=== PATIENT | female | born 1940 | race Caucasian/White ===

== ENCOUNTER 2018-02-05 21:44 | Inpatient (IN) ==
[2018-02-05] MEDS ORDERED: Mag Hydrox/Al Hydrox/Simeth 30 ML UDC PO STA (22:33)
[2018-02-05] MEDS ORDERED: Nitroglycerin 0.4 MG TAB.SUBL SL PRN ×2 (22:33→23:27)
[2018-02-05] MEDS ORDERED: Aspirin 81 MG TAB.CHEW PO STA (22:33)
--- NOTE | 2018-02-05 22:36 | Emergency Department Note ---
Disposition Clinical Impression: Chest pain Qualifiers: Chest pain type: unspecified Qualified Code(s): R07.9 - Chest pain, unspecified Disposition: Admitted As Inpatient Condition: Good Referrals: Jayla Goodman CNP [Primary Care Provider] - Forms: ED Satisfaction Letter Chest Pain HPI - General Chief Complaint: ED Chest Pain Stated Complaint: cp Source: patient - History of Present Illness HPI Narrative: Patient with a few days of chest pain has been constant with waxing and waning intensity. She describes it as a fullness in the middle of her chest. Associated with diaphoresis or shortness of breath, no nausea. Worse with exertion. She says she has similar episode when she was about 58 years old, has several tests run, was told she had acid reflux. Was on Prilosec for a period of time, but then did not need it anymore. Sometimes she is has discomfort she checked her pulse and found it to be in the 40s. She said no syncope. Has had no recent changes in her medications. Blood pressure is been running high as well, anywhere from the 140s to 180s systolic. Denies any symptoms of bleeding, no fever or cough. No other complaints. Severity scale (1-10): 3 - Related Data Allergies Allergy/AdvReac Type Severity Reaction Status Date / Time codeine Allergy See Verified 02/05/18 21:51 Comments All systems ED: reviewed and negative except as stated. Chest Pain PMH - Past Medical History Medical history: Reports: hypertension Psychiatric history: Reports: anxiety, depression - Social History Smoking Status: Never smoker Alcohol use: Reports: none Drug use: Reports: none Physical Exam Vital signs noted please see nurse's notes. Gen.: Well-developed, well-nourished patient lying in bed who appears nontoxic. Head: Atraumatic, normocephalic. Eyes: Sclerae anicteric. ENT: Mucous membranes moist. Neck: No JVD. Heart: Regular rate and rhythm with occasional ectopic beats and soft systolic murmur. Lungs: Normal respiratory pattern without respiratory distress, lungs clear to auscultation bilaterally. Abdomen: Soft, nontender, nondistended, no guarding or peritoneal signs. Skin: Warm and dry without rash. Neurologic: Awake, alert with normal speech and mental status. Cranial nerves grossly intact. No focal deficits or lateralizing signs. Psychiatric: Normal mood and affect. Muscular skeletal: No peripheral edema. No signs of trauma or DVT. - General General appearance: alert, in no apparent distress Course Vital Signs Temperature 98.1 F 02/05/18 21:52 Pulse Rate 56 02/05/18 21:52 Respiratory Rate 16 02/05/18 21:52 Blood Pressure 224/102 02/05/18 21:52 O2 Sat by Pulse Oximetry 96 02/05/18 21:52 Temperature 98.1 F 02/05/18 21:52 Pulse Rate 56 02/05/18 21:52 Respiratory Rate 16 02/05/18 21:52 Blood Pressure 224/102 02/05/18 21:52 O2 Sat by Pulse Oximetry 96 02/05/18 21:52 Oxygen Delivery Oxygen Delivery Room Air Chest Pain - MDM Narrative Medical decision making narrative: Repeat EKG showed sinus rhythm rate 54, normal QT and QRS, 1st degree AV block with [place] of 221. No acute ischemic changes. On my reevaluation at 1111, her pain is significantly improved. Heart score is 4. Troponin negative. I do not have confidence the patient would follow-up as an outpatient. I think she is best served by admission and completion of rule out on an inpatient basis. - Lab Data Result diagrams: 02/05/18 22:25 02/05/18 22:25 Lab Results 02/05/18 02/05/18 Range/Units 22:25 22:25 WBC 10.6 (4.3-11.1) K/mcL RBC 5.53 H (3.82-4.97) M/mcL Hgb 15.7 H (11.5-15.4) g/dL Hct 47.4 H (35.3-44.9) % MCV 85.7 (83.0-100.0) fL MCH 28.4 (28.0-33.3) pg MCHC 33.1 (31.6-35.5) g/dL RDW 13.6 (11.5-14.5) % Plt Count 183 (140-400) K/mcL MPV 10.8 (9.4-12.4) fL Sodium 139 (136-145) mEq/L Potassium 4.1 (3.5-5.1) mEq/L Chloride 105 (98-107) mEq/L Carbon Dioxide 26 (23-29) mEq/L BUN 20 (8-23) mg/dL Creatinine 0.87 (0.60-1.20) mg/dL Est GFR ( Amer) > 60 (> 60) Est GFR (Non-Af Amer) > 60 (> 60) BUN/Creatinine Ratio 23 (6-26) Glucose 118 H (70-105) mg/dL Calculated Osmolality 292 (280-300) Calcium 9.3 (8.6-10.3) mg/dL Troponin I < 0.03 (< 0.04) ng/mL - EKG Data EKG attestation: Yes I reviewed and interpreted this EKG. EKG shows normal: sinus rhythm (Rate 83, normal intervals and QRS duration. There are frequent PVCs. No ST segment or T-wave changes to suggest an acute ischemic process.) Heart Score - Score History: Moderately Suspicious EKG: Normal Age: Greater than 65 Risk Factors: 1-2 risk factors Troponin: Less than normal limit HEART Score Total: 4
[2018-02-05 22:47] LABS: Hematocrit 47.4 % (35.3-44.9); Hemoglobin 15.7 g/dL (11.5-15.4); Mean Corpuscular HGB Conc 33.1 g/dL (31.6-35.5); Mean Corpuscular Hemoglobin 28.4 pg (28.0-33.3); Mean Corpuscular Volume 85.7 fL (83.0-100.0); Mean Platelet Volume 10.8 fL (9.4-12.4); Platelet Count 183 K/mcL (140-400); Red Blood Count 5.53 M/mcL (3.82-4.97); Red Cell Distribution Width 13.6 % (11.5-14.5)
[2018-02-05 22:58] LABS: BUN/Creatinine Ratio 23 (6-26); Blood Urea Nitrogen 20 mg/dL (8-23); Calcium 9.3 mg/dL (8.6-10.3); Carbon Dioxide 26 mEq/L (23-29); Chloride 105 mEq/L (98-107); Glucose 118 mg/dL (70-105); Osmolality,Calculated 292 (280-300); Potassium 4.1 mEq/L (3.5-5.1); Sodium 139 mEq/L (136-145); Troponin I < 0.03 ng/mL (< 0.04); eGFR For Non-African Americans > 60 (> 60)
[2018-02-05] MEDS ORDERED: Naloxone 0.4 MG/ML INJ IVP PRN (23:24)
[2018-02-06] MEDS: *HR* Heparin 5,000 UNIT/ML VIAL SQ SCH ×4 (02:19→22:42)
[2018-02-06] MEDS: cloNIDine HCl 0.1 MG TABLET PO SCH ×2 (02:20→10:52)
[2018-02-06] MEDS ORDERED: Regadenoson 0.4 MG/5 ML SYRINGE IVP ONE (05:57)
[2018-02-06 06:50] LABS: Basophils % 0.3 %; Eosinophils # 0.2 K/mcL (0.0-0.6); Eosinophils % 2.6 %; Hematocrit 40.9 % (35.3-44.9); Immature Granulocytes % 0.2 % (0-4); Lymphocytes # 2.3 K/mcL (0.6-4.6); Mean Corpuscular HGB Conc 33.3 g/dL (31.6-35.5); Mean Corpuscular Volume 84.2 fL (83.0-100.0); Mean Platelet Volume 11.2 fL (9.4-12.4); Monocytes # 0.8 K/mcL (0.0-1.3); Monocytes % 8.9 %; Neutrophils # 5.5 K/mcL (1.6-8.9); Platelet Count 165 K/mcL (140-400); Red Blood Count 4.86 M/mcL (3.82-4.97); Red Cell Distribution Width 13.8 % (11.5-14.5)
[2018-02-06 06:52] LABS: Hemoglobin 13.6 g/dL (11.5-15.4)
[2018-02-06 07:15] LABS: Troponin I < 0.03 ng/mL (< 0.04)
[2018-02-06 07:20] LABS: Alanine Aminotransferase 14 Units/L (7-52); Albumin 3.8 g/dL (3.5-5.7); Albumin/Globulin Ratio 1.6 (1.1-2.2); Alkaline Phosphatase 75 Units/L (34-104); Aspartate Amino Transferase 12 Units/L (13-39); BUN/Creatinine Ratio 20 (6-26); Bilirubin,Total 0.4 mg/dL (0.3-1.0); Blood Urea Nitrogen 17 mg/dL (8-23); Carbon Dioxide 24 mEq/L (23-29); Chloride 107 mEq/L (98-107); Globulin 2.4 g/dL (2.4-3.5); Glucose 120 mg/dL (70-105); Osmolality,Calculated 293 (280-300); Potassium 3.8 mEq/L (3.5-5.1); Sodium 140 mEq/L (136-145); Total Protein 6.2 g/dL (6.4-8.9); eGFR For Non-African Americans > 60 (> 60)
--- NOTE | 2018-02-06 07:56 | Internal Med History&Physical ---
Date of Encounter: 02/06/18 Time of Encounter: 03:30 Internal Medicine - H&P: HPI Chief complaint: Chest pain History of present illness: Ms. Ann is a 77 year old female with past medical history of hypertension who reports chest pain for the past 4-5 days. She describes it as a fullness in the middle of her chest, constant, nonradiating, nonpleuritic with waxing and waning intensity associated with diaphoresis, shortness of breath, and absent nausea. Symptoms appear to be worse with exertion. She states that she checked her blood pressure around the time of symptom onset and found her systolic blood pressure to be in the 180s and a pulse of 41. Patient however states that her heart rate typically runs in the high 40s and low 50s. Denies any history of coronary artery disease. She has never smoked and does not drink. She reports a family history of [place] in her father and brother both of which suffered a heart attack in their 70s and 80s respectively. Patient currently on antihypertensive medications with metoprolol and clonidine. She reports similar a episode when she was about 58 years old and was treated for acid reflux. She said no syncope. Has had no recent changes in her medications. Blood pressure is been running high as well, anywhere from the 140s to 180s systolic. Denies any symptoms of bleeding, chest pain at this time. No fever or cough. No other complaints. EKG unremarkable. Negative troponins. Past Med Surg Social Fam HX - Past Medical History Medical history: hypertension Psychiatric history: anxiety, depression - Social History Smoking Status: Never smoker Smokeless Tobacco Status: No Alcohol use: none Drug use: none - Family History Mother Living Status: Age at : 87 Hx Family Cardiac Disorders: Yes Father Age at : 74 Hx Family Cardiac Disorders: Yes Brother Living Status: Age at : 64 Hx Family Cardiac Disorders: Yes Internal Medicine - H&P: Meds Calcium Carbonate/Vitamin D3 [Calcium 1,000 + D3 Caplet] 1 each PO DAILY [History] Fish Oil/Dha/Epa [Fish Oil 1,200 mg Fish Oil] 1 each PO BID 02/06/18 [History] Metoprolol [Lopressor] 50 mg PO BID 02/06/18 [History] cloNIDine HCl [CloNIDine HCl] 0.1 mg PO BID 02/06/18 [History] 3 Allergy/AdvReac Type Severity Reaction Status Date / Time codeine Allergy See Verified 02/05/18 21:51 Comments All Systems PM: A 10-system review of systems was performed and is negative for pertinent findings except as documented above in the HPI. - Constitutional Constitutional: no chills, no fever(s), no night sweats - EENT Eyes: no change in vision, no discharge, no pain, no photophobia Ears: no ear discharge, no ear pain, no tinnitus Nose, mouth and throat: no dysphagia, no nasal discharge, no neck pain, no sore throat - Cardiovascular Cardiovascular ROS IM: no chest pain, no diaphoresis, no dyspnea, no lightheadedness, no palpitations, no syncope - Respiratory Respiratory: no cough, no dyspnea, no wheezing, no excessive phlegm production - Gastrointestinal Gastrointestinal: no abdominal pain, no diarrhea, no hematemesis, no hematochezia, no melena, no nausea, no vomiting - Genitourinary Genitourinary: no change in urinary stream, no dysuria, no flank pain, no hematuria - Musculoskeletal Musculoskeletal ROS IM: no numbness, no tingling - Integumentary Integumentary IM: no rash, no unusual bruising - Neurological Neurological ROS: no confusion, no convulsions, no focal weakness, no numbness, no tingling, no tremor(s) - Hematologic/Lymphatic Hematologic/Lymphatic: no easy bruising - Constitutional Vitals: Temp Pulse Resp BP Pulse Ox 98.4 F 51 16 152/78 97 02/06/18 01:04 02/06/18 01:04 02/06/18 01:04 02/06/18 02:03 02/06/18 01:09 Exam: General: Alert and oriented 3; lying in bed in no acute distress Skin:Normal color, no rash, no lesions. HEENT:EOM, pupils equal, round and reactive. Cardiovascular:Normal S1 & S2, no rubs, murmurs or gallops. No JVD. Pulse regular. Lungs:Normal breath sounds, no wheezes or crackles. Abdomen:Soft, non-tender, no rigidity. Extremities:No deformity, no edema or tenderness, no joint swelling or clubbing. Neurological:Normal cognition and motor skills. Pulses:Carotid and radial pulses normal +2. Rest of the physical exam is non contributory Internal Med - H&P Results - Labs CBC & Chem 7: 02/06/18 05:15 02/06/18 05:15 Labs: Short CBC 02/06/18 Range/Units 05:15 WBC 8.9 (4.3-11.1) K/mcL Hgb 13.6 D (11.5-15.4) g/dL Hct 40.9 (35.3-44.9) % Plt Count 165 (140-400) K/mcL Neutrophils # 5.5 (1.6-8.9) K/mcL BMP 02/06/18 05:15 Sodium 140 Potassium 3.8 Chloride 107 Carbon Dioxide 24 BUN 17 Creatinine 0.83 Glucose 120 H Calcium 9.0 Cardiac Enzymes 02/06/18 Range/Units 05:15 Troponin I < 0.03 (< 0.04) ng/mL Liver Function 02/06/18 Range/Units 05:15 Total Bilirubin 0.4 (0.3-1.0) mg/dL AST 12 L (13-39) Units/L ALT 14 (7-52) Units/L Alkaline Phosphatase 75 (34-104) Units/L Albumin 3.8 (3.5-5.7) g/dL - Assessment and plan (1) Chest pain Current Visit: Yes Status: Acute Assessment and plan: Chest pain rule out acute coronary syndrome. Patient received loading dose of aspirin Trend troponin. Continue telemetry. Sublingual nitroglycerin as needed Stress test. Consider cardiology consult. Qualifiers: Chest pain type: unspecified Qualified Code(s): R07.9 - Chest pain, unspecified (2) Hypertension Current Visit: Yes Status: Acute Assessment and plan: Blood pressure mildly elevated. Continue with beta micheline and clonidine. Qualifiers: Hypertension type: unspecified Qualified Code(s): I10 - Essential (primary ) hypertension (3) History of tobacco abuse Current Visit: Yes Status: Acute (4) DVT prophylaxis Current Visit: Yes Status: Acute Assessment and plan: Continue subcutaneous heparin - Time Spent With Patient Total time spent is greater than 50% in coordination of care (as documented) at patient's floor/unit and/or counseling patient:
--- NOTE | 2018-02-06 11:50 | Internal Med Progress Note ---
Hospitalist Progress Note - Encounter Date of Encounter: 02/06/18 Time of Encounter: 11:38 - Subjective Interval History: nno acute changes overnight. Patient conchita. Reports that she has not had chest pain since last night. However, she notes that she has hypertensive this morning. She is reporting that her blood pressure is greater than her baseline blood pressure at home. - Exam Vitals: Temp Pulse Resp BP Pulse Ox 97.9 F 51 17 192/84 95 02/06/18 10:45 02/06/18 11:15 02/06/18 10:45 02/06/18 11:15 02/06/18 10:45 Exam: PHYSICAL EXAMINATION: GENERAL: The patient is a well-developed, elderly female in no apparent distress who is alert and oriented 3 HEENT: Head is normocephalic and atraumatic. Extraocular muscles are intact. Pupils are equal, round, and reactive to light and accommodation. NECK: Supple. No carotid bruits. No lymphadenopathy or thyromegaly. LUNGS: Clear to auscultation. HEART: Regular rate and rhythm, S1, S2 without murmur rubs or gallops. EXTREMITIES: Without any cyanosis, clubbing, rash, lesions or edema. SKIN: No ulceration or induration present. - Assessment and Plan (1) Chest pain Current Visit: Yes Status: Acute Assessment and Plan: Admitted for Chest pain rule out ACS Presented with a 4-5 day history of midsternal chest pressure/discomfort without radiation Patient reports that this occurred during activity but did not get better with rest. In addition to this she was experiencing dyspnea and diaphoresis which prompted her admission to the ED EKG--Sinus johnathan, no ST-T wave changes concerning for ischemia serial troponins obtained and less than 0.03 x2 Continue telemetry Sublingual nitroglycerin as needed Stress test unable to be completed today d/t HTN; anti-HTN meds held this am. Resume anti-HTN meds now and hold BB only in the am. Stress tomorrow TTE pending completion Consider cardiology consult pending stress test results (2) Hypertension Current Visit: Yes Status: Acute Assessment and Plan: per hx HTN this am with SBP 208/94; likely rebound with holding clonidine and BB anti-HTN meds held this am Start DAYANARA-I and CCB D/C BB and clonidine d/t bradycardia HR in the 40's Start PRN hydralazine (3) History of tobacco abuse Current Visit: Yes Status: Acute Assessment and Plan: discussed tobacco cessation (4) DVT prophylaxis Current Visit: Yes Status: Acute Assessment and Plan: Continue SC heparin - Time Spent with Patient Total time spent is greater than 50% in coordination of care (as documented) at patient's floor/unit and/or counseling patient: less than 15 minutes Plan of Care Discussed with: patient Internal Medicine: Result - Labs CBC & Chem 7: 02/06/18 05:15 02/06/18 05:15 Labs: Short CBC 02/06/18 Range/Units 05:15 WBC 8.9 (4.3-11.1) K/mcL Hgb 13.6 D (11.5-15.4) g/dL Hct 40.9 (35.3-44.9) % Plt Count 165 (140-400) K/mcL Neutrophils # 5.5 (1.6-8.9) K/mcL BMP 02/06/18 05:15 Sodium 140 Potassium 3.8 Chloride 107 Carbon Dioxide 24 BUN 17 Creatinine 0.83 Glucose 120 H Calcium 9.0 Cardiac Enzymes 02/06/18 Range/Units 05:15 Troponin I < 0.03 (< 0.04) ng/mL Liver Function 02/06/18 Range/Units 05:15 Total Bilirubin 0.4 (0.3-1.0) mg/dL AST 12 L (13-39) Units/L ALT 14 (7-52) Units/L Alkaline Phosphatase 75 (34-104) Units/L Albumin 3.8 (3.5-5.7) g/dL Consult Discharge Plan - Plan Referrals: Jayla Goodman, [facility] [Primary Care Provider] - (1) Chest pain Qualifiers: Chest pain type: unspecified Qualified Code(s): R07.9 - Chest pain, unspecified (2) Hypertension Qualifiers: Hypertension type: unspecified Qualified Code(s): I10 - Essential (primary) hypertension
--- NOTE | 2018-02-06 12:58 | Electrocardiograph Report ---
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
--- NOTE | 2018-02-06 13:00 | Electrocardiograph Report ---
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
[2018-02-07] MEDS: Ondansetron 4 MG/2 ML VIAL IVP PRN ×2 (02:06→18:37)
[2018-02-07] MEDS ORDERED: Regadenoson 0.4 MG/5 ML SYRINGE IVP ONE (05:52)
[2018-02-07] MEDS: *HR* Heparin 5,000 UNIT/ML VIAL SQ SCH ×3 (06:13→21:41)
[2018-02-07] MEDS ORDERED: amLODIPine 5 MG TABLET PO SCH (09:00)
[2018-02-07] MEDS ORDERED: amLODIPine 5 MG TABLET PO ONE (09:39)
--- NOTE | 2018-02-07 12:40 | Internal Med Progress Note ---
Hospitalist Progress Note - Encounter Date of Encounter: 02/07/18 Time of Encounter: 12:31 - Subjective Interval History: No acute changes overnight, patient was seen and examined at bedside today. Continues to deny any return of chest pain since admission. Still having episodes of hypertension this morning. - Exam Vitals: Temp Pulse Resp BP Pulse Ox 98.1 F 65 17 167/95 95 02/07/18 11:18 02/07/18 11:18 02/07/18 11:18 02/07/18 11:18 02/07/18 11:18 Exam: PHYSICAL EXAMINATION: GENERAL: The patient is a well-developed, elderly female in no apparent distress who is alert and oriented 3 HEENT: Head is normocephalic and atraumatic. Extraocular muscles are intact. Pupils are equal, round, and reactive to light and accommodation. NECK: Supple. No carotid bruits LUNGS: Clear to auscultation. HEART: Regular rate and rhythm, S1, S2 without murmur rubs or gallops. EXTREMITIES: Without any cyanosis, clubbing, rash, lesions or edema. SKIN: No ulceration or induration present. - Assessment and Plan (1) Chest pain Current Visit: Yes Status: Acute (2) Hypertension Current Visit: Yes Status: Acute (3) History of tobacco abuse Current Visit: Yes Status: Acute (4) DVT prophylaxis Current Visit: Yes Status: Acute - Summary of Assessment and Plan Summary of Assessment and Plan: Patient presented to the ED with chest pain and hypertensive urgency. ACS rule out implemented. Patient was reporting a 4-5 day history of midsternal chest pressure/discomfort without radiation. She reports that the pain did occur during activity but did not get better with rest. In addition to that she was experiencing dyspnea and diaphoresis which prompted her to seek care in the ED. Initial EKG on arrival shows a sinus bradycardia without any ST-T wave changes concerning for ischemia. Serial troponins obtained and found to be less than 0.032. The patient has remained on telemetry throughout stay and has had no events on telemetry. Chest pain subsided in the ED and she has had no return of chest pain since admission. She is to undergo a stress test and TTE 02/07--clinically patient is stable, she continues to deny any chest pain. Given presentation we will pursue with ACS rule out. No arrhythmic events identified on telemetry overnight. TTE completed yesterday, LVEF 60-65%, normal LV chamber size and thickness and function, mild LV DDD, normal RV structure and function, mildly dilated left atrium, normal RA size, no aortic regurgitation or stenosis, trace mitral regurgitation without stenosis, no evidence of pulmonary HTN. Patient to undergo stress test stress test this morning however, was unable to undergo stress test due to HTN. Patient likely experiencing rebound hypertension with discontinuation of clonidine. She has been started on DAYANARA inhibitor, calcium channel micheline and low-dose beta micheline 12.5 mg twice a day. Nothing by mouth After midnight for stress test in the morning. DIAGNOSIS: 1-chest pain-proceed with ACS rule out. To undergo stress test in the morning. 2-yshzufnyagqy-Knhywiscihnx per history. Continuing to have episodes of rebound hypertension. Clonidine has been discontinued. Resume beta micheline at decreased dose as patient was having bradycardia with HR in the 40s. Start metoprolol 12.5 mg twice a day now, continue Norvasc 10 mg daily, continue lisinopril 10 mg daily 3-history of tobacco abuse-discussed tobacco cessation, patient verbalizes understanding and reports that she does wish to quit smoking 4-DVT prophylaxis-SC heparin - Time Spent with Patient Total time spent is greater than 50% in coordination of care (as documented) at patient's floor/unit and/or counseling patient: less than 15 minutes Plan of Care Discussed with: patient Internal Medicine: Result - Labs CBC & Chem 7: 02/06/18 05:15 02/06/18 05:15 Labs: Cardiac Enzymes 02/06/18 Range/Units 11:29 Troponin I < 0.03 (< 0.04) ng/mL - Impressions Impressions Echocardiogram 02/06/18 10:39 Impressions: LVEF 60-65%. Normal LV chamber size, wall thickness and function. Mild left ventricular diastolic dysfunction. Normal right ventricular structure and function. No evidence of pulmonary hypertension. No significant valvular dysfunction. Left Ventricular Wall Motion: Rest Echo Findings All wall segments showed normal motion. Findings: Study Quality * Technically adequate exam. ECG Findings * Sinus bradycardia. Left Ventricle * LVEF 60-65%. * Normal LV chamber size, wall thickness and function. * Mild left ventricular diastolic dysfunction. Right Ventricle * Normal right ventricular structure and function. Left Atrium * Mildly dilated left atrium. Right Atrium * Normal right atrial size. Aortic Valve * Trileaflet aortic valve with normal function. * No aortic regurgitation. * No aortic stenosis. Mitral Valve * Mild mitral annular calcification * Trace mitral regurgitation. * No mitral stenosis. Tricuspid Valve * Normal tricuspid valve structure and function. * Trace tricuspid regurgitation. * No evidence of pulmonary hypertension. Pulmonic Valve * Normal pulmonic valve structure and function. * No pulmonic regurgitation. Aorta * Normally sized aortic root. Pericardium * The pericardium appears normal. IVC * Normal IVC dimensions and inspiratory collapse. Pulmonary Artery * Normal visualized portions of the main pulmonary artery. Consult Discharge Plan - Plan Referrals: Jayla Goodman CNP [Primary Care Provider] - 02/14/18 1:00 pm (1) Chest pain Qualifiers: Chest pain type: unspecified Qualified Code(s): R07.9 - Chest pain, unspecified (2) Hypertension Qualifiers: Hypertension type: unspecified Qualified Code(s): I10 - Essential (primary) hypertension
[2018-02-07] MEDS ORDERED: *HR* Metoprolol 5 MG/5 ML VIAL IVP ONE (18:26)
[2018-02-08] MEDS: amLODIPine 5 MG TABLET PO SCH (06:07)
[2018-02-08] MEDS: *HR* Heparin 5,000 UNIT/ML VIAL SQ SCH ×3 (06:07→20:43)
[2018-02-08] MEDS ORDERED: Regadenoson 0.4 MG/5 ML SYRINGE IVP ONE (08:41)
--- NOTE | 2018-02-08 15:43 | Internal Med Progress Note ---
Hospitalist Progress Note - Encounter Date of Encounter: 02/08/18 Time of Encounter: 15:39 - Subjective Interval History: No acute changes overnight, patient was seen and examined at bedside today. Continues to deny any return of chest pain since admission. HTN improving today , however, experiencing tachycardia - Exam Vitals: Temp Pulse Resp BP Pulse Ox 98.3 F 116 19 151/96 94 02/08/18 15:24 02/08/18 15:24 02/08/18 15:24 02/08/18 15:24 02/08/18 15:24 Exam: PHYSICAL EXAMINATION: GENERAL: The patient is a well-developed, elderly female in no apparent distress who is alert and oriented 3 HEENT: Head is normocephalic and atraumatic. Extraocular muscles are intact. Pupils are equal, round, and reactive to light and accommodation. NECK: Supple. No carotid bruits to auscultation LUNGS: Clear to auscultation. HEART: Regular rate and rhythm, S1, S2 without murmur rubs or gallops. EXTREMITIES: Without any cyanosis, clubbing, rash, lesions or edema. SKIN: No ulceration or induration present. - Assessment and Plan (1) Chest pain Current Visit: Yes Status: Acute (2) Hypertension Current Visit: Yes Status: Acute (3) History of tobacco abuse Current Visit: Yes Status: Acute (4) DVT prophylaxis Current Visit: Yes Status: Acute - Summary of Assessment and Plan Summary of Assessment and Plan: Patient presented to the ED with chest pain and hypertensive urgency. ACS rule out implemented. Patient was reporting a 4-5 day history of midsternal chest pressure/discomfort without radiation. She reports that the pain did occur during activity but did not get better with rest. In addition to that she was experiencing dyspnea and diaphoresis which prompted her to seek care in the ED. Initial EKG on arrival shows a sinus bradycardia without any ST-T wave changes concerning for ischemia. Serial troponins obtained and found to be less than 0.032. The patient has remained on telemetry throughout stay and has had no events on telemetry. Chest pain subsided in the ED and she has had no return of chest pain since admission. She is to undergo a stress test and TTE 02/08--clinically patient remains stable, she continues to deny any chest pain. ACS ruled out; stress today without ischemia or perfusion defect. No arrhythmic events identified on telemetry overnight. TTE completed yesterday, LVEF 60-65% , normal LV chamber size and thickness and function, mild LV DDD, normal RV structure and function, mildly dilated left atrium, normal RA size, no aortic regurgitation or stenosis, trace mitral regurgitation without stenosis, no evidence of pulmonary HTN. HTN improving with the addition of DAYANARA inhibitor and calcium channel micheline. However patient still having some mild hypertension with SBP in the 150s. Also, she is not having some mild tachycardia. I will increase her beta micheline dose tonight and continue to monitor overnight. If patient's blood pressure and heart rate improves and remains stable consider discharge. DIAGNOSIS: 1-chest pain-- ruled out 7-[id number] per history. 3-history of tobacco abuse-discussed tobacco cessation, patient verbalizes understanding and reports that she does wish to quit smoking 4-DVT prophylaxis-SC heparin - Time Spent with Patient Total time spent is greater than 50% in coordination of care (as documented) at patient's floor/unit and/or counseling patient: less than 15 minutes Plan of Care Discussed with: patient Internal Medicine: Result - Labs CBC & Chem 7: 02/06/18 05:15 02/06/18 05:15 Consult Discharge Plan - Plan Referrals: Jayla Goodman MEDICATION TECHNICIAN [Primary Care Provider] - 02/14/18 1:00 pm (1) Chest pain Qualifiers: Chest pain type: unspecified Qualified Code(s): R07.9 - Chest pain, unspecified (2) Hypertension Qualifiers: Hypertension type: unspecified Qualified Code(s): I10 - Essential (primary) hypertension
[2018-02-09] MEDS: *HR* Heparin 5,000 UNIT/ML VIAL SQ SCH (06:17)
[2018-02-09] MEDS: amLODIPine 5 MG TABLET PO SCH (08:18)
--- NOTE | 2018-02-09 11:15 | Discharge Summary ---
- NOTES TO OUTPATIENT PROVIDER Notes to Outpatient Provider: Found to have HTN urgency r/t education deficits regarding antihypertensive use as well as some degree of noncompliance. Due to the high risk of rebound hypertension with clonidine and beta micheline the clonidine as been discontinued. Patient has been started on lisinopril and Norvasc, beta micheline has been continued at a decreased dose. Upon arrival patient was found to have symptomatic bradycardia with heart rate in the 40s. This is improved with decreased dose, blood pressure improving. She has been instructed to keep a journal of her blood pressure, please continue to further monitor and titrate BP medications as necessary. Date of Encounter: 02/09/18 Time of Encounter: 11:09 - Discharge Diagnosis (1) Hypertension Priority: Primary Status: Acute Assessment and Plan: Patient presented with chest pain concerning for ACS; also found to have hypertensive urgency For chest pain improved with improvement of her blood pressure EKG without any ST-T wave changes concerning for ischemia, serial troponins found to be negative. Stress test without concerning findings for ischemia ACS ruled out Hypertensive urgency most likely caused by rebound hypertension as patient reports a degree of noncompliance with antihypertensive regimen of clonidine and beta micheline Additionally, the patient was found to have some symptomatic bradycardia with heart rate in the 40s Clonidine has been discontinued. Beta micheline continued at a decreased dose, started calcium channel micheline and DAYANARA inhibitor; blood pressure and heart rate improving I will continue beta micheline, CCB and DAYANARA I at discharge. Please follow-up and titrate as appropriate Qualifiers: Hypertension type: unspecified Qualified Code(s): I10 - Essential (primary ) hypertension (2) Chest pain Priority: Primary Status: Ruled-out Qualifiers: Chest pain type: unspecified Qualified Code(s): R07.9 - Chest pain, unspecified (3) History of tobacco abuse Priority: Secondary Status: Acute (4) DVT prophylaxis Priority: Secondary Status: Acute Hospital course: Ms. Ann is a 77 year old female who presented for chest pain and hypertensive urgency. ACS was ruled out with negative stress test, EKG without ST-T wave changes concerning for ischemia and negative serial troponins. Chest pain subsided with improvement in blood pressure. Clonidine has been discontinued, metoprolol has been continue but a decreased dose. I have started her on a calcium channel micheline and an DAYANARA inhibitor. Blood pressure improving. His follow-closely. Discharge discussed with: patient, family, nurse Time spent discussing smoking cessation with patient: 3 to 10 minutes - Time Spent with Patient Total time spent providing and/or coordinating discharge services: Less than 30 minutes - Discharge Medications Prescriptions: amLODIPine [Norvasc] 10 mg PO DAILY 30 Days #60 tablet Lisinopril [Zestril] 10 mg PO DAILY 30 Days #30 tablet Metoprolol [Lopressor] 25 mg PO BID 30 Days #60 tablet Home Medications: Buspirone HCl [Buspar] 7.5 mg PO HS PRN 02/06/18 [History] Calcium Carbonate/Vitamin D3 [Calcium 1,000 + D3 Caplet] 1 each PO DAILY [History] Fish Oil/Dha/Epa [Fish Oil 1,200 mg Fish Oil] 1 each PO BID 02/06/18 [History] Lisinopril [Zestril] 10 mg PO DAILY 30 Days #30 tablet 02/09/18 [Rx] Metoprolol [Lopressor] 25 mg PO BID 30 Days #60 tablet 02/09/18 [Rx] amLODIPine [Norvasc] 10 mg PO DAILY 30 Days #60 tablet 02/09/18 [Rx] Allergies/Adverse Reactions: 3 Allergy/AdvReac Type Severity Reaction Status Date / Time codeine Allergy See Verified 02/05/18 21:51 Comments Date of admission: 02/08/18 16:09 Primary care physician: Jayla Goodman CNP Discharging clinician: Eddie Gamino Anticipated date of discharge: 02/09/18 - Constitutional Vitals: Temp Pulse Resp BP Pulse Ox 97.6 F 75 16 183/96 96 02/09/18 07:16 02/09/18 07:16 02/09/18 07:16 02/09/18 07:16 02/09/18 07:16 Exam: . - Head Head exam: Present: atraumatic, normocephalic - Eye Eye exam: Present: PERRL, conjuntiva pink, sclera anicteric Pupils: Present: PERRL - Neck Neck exam general surgery: Present: supple, trachea midline. Absent: lymphadenopathy - Respiratory Respiratory exam: Present: CTAB. Absent: accessory muscle use, rales, rhonchi, wheezes - Cardiovascular Cardiovascular exam: Present: RRR, +S1, +S2. Absent: diastolic murmur, gallop, rubs, systolic murmur - GI/Abdominal GI/Abdominal exam: Present: normal bowel sounds, soft, no peritoneal signs. Absent: distended, tenderness - Extremities Exam Extremities exam: Present: warm, radial pulses palpable and symmetrical. Absent : calf tenderness, cyanotic, pedal edema - Neurological Exam Neurological exam: Present: CN II-XII intact, oriented X3, no focal deficits. Absent: pronater drift, facial droop, speech deficit - Skin Skin exam: Present: dry, intact - Patient Status Disposition: Home, Self-Care Condition: Good Functional capacity at discharge: independent ambulation Overall status at discharge: patient is back to baseline - Discharge Instructions Instructions: Chronic Hypertension (DC) Follow Up With: Jayla Goodman CNP [Primary Care Provider] - 02/14/18 1:00 pm - Diet and Activity Activity: increase activity as tolerated, resume usual activities as tolerated Diet: low fat, low cholesterol, low salt diet
[2018-02-09 12:25] VITALS: BP 158/74
== END 2018-02-09 12:30 | disposition home or self-care (01) | DRG 305 ==
LOC: EMEROOARM 21:44 → 3BNU 21:44
PROVIDERS: ADMIT Internal Medicine; ATTEND Internal Medicine